=== PATIENT | male | born 1950 | race Caucasian/White ===

== ENCOUNTER → 2020-05-21 08:39 | Outpatient (CLI) | payer MEDICARE, BC, SELFPAY ==
--- NOTE | ~2020-05-21 | XR_ITS ---
XR wrist RT min 3V DATE: 05/21/2020 08:57 INDICATION: Right wrist pain TECHNIQUE: 4 views COMPARISON: None FINDINGS: No fracture or dislocation, periosteal reaction or bone destruction is detected. No chondro calcinosis or erosive change. IMPRESSION: No significant abnormality Reviewed, dictated and finalized at location A. IMPRESSION: No significant abnormality
== END ==
PROVIDERS: PCP Family Medicine; Visit Provider Physician Assistant
DX: M25.539 Pain in unspecified wrist (principal)
CPT/HCPCS: 73110

== ENCOUNTER → 2020-10-22 00:31 | Outpatient (CLI) | payer MEDICARE, BC, SELFPAY ==
[2020-10-22 18:19] LABS: SARS-CoV-2 RNA PCR Negative
== END ==
PROVIDERS: PCP Family Medicine; Visit Provider Specialist
DX: Z01.812 Encounter for preprocedural laboratory examination (principal); Z20.822 Contact with and (suspected) exposure to COVID-19
CPT/HCPCS: C9803; U0003; U0005

== ENCOUNTER 2020-10-25 00:58 | Day surgery (SDC) | payer MEDICARE, BC, SELFPAY ==
[2020-10-22 14:50] VITALS: BMI 30.1
[2020-10-25] VITALS (14 sets, daily range): BP systolic 117–154; BP diastolic 71–88; PULSE 57–75; RESP 12–18; TEMP 36.6–36.7; O2SAT 93–99; BMI 29.9
[2020-10-25 08:52] LABS: Basophils Percent Auto 0.3 % (0.2-1.2); Hematocrit 49.6 % (42.0-52.0); Hemoglobin 17.1 g/dL (14.0-18.0); Immature Granulocyte Absolute 0.04 K/mm3 (0.00-0.031); Immature Granulocyte Percent A 0.6 % (0-0.5); Lymphocytes Absolute Auto 2.06 K/mm3 (0.9-3.2); Lymphocytes Percent Auto 30.4 % (18.3-44.2); Mean Corpuscular HGB Conc 34.5 g/dl (32-36); Mean Corpuscular Hemoglobin 30.5 pg (26-34); Mean Corpuscular Volume 88.4 fl (80-100); Mean Platelet Volume 10.4 fl (7.4-10.4); Monocytes Absolute Auto 0.7 K/mm3 (0.1-0.6); Monocytes Percent Auto 10.3 % (2.6-8.5); Neutrophils Percent Auto 58.4 % (45.5-73.1); Platelet Count Result 219 k/mm3 (150-375); Red Blood Count 5.61 M/mm3 (4.6-6.20); Red Cell Distribution Width 13.7 % (11.5-14.5); White Blood Count 6.8 K/mm3 (4.5-10.0)
[2020-10-25 09:01] LABS: INR 0.9; Prothrombin Time 12.6 Seconds (11.1-14.7)
[2020-10-25 09:04] LABS: Anion Gap 8 mmol/L (8-16); Blood Urea Nitrogen 16 mg/dL (9-20); Calcium 9.8 mg/dL (8.4-10.2); Carbon Dioxide 29 mmol/L (22-30); Chloride 104 mmol/L (98-107); Estimated CRCL calculation 68 ml/min; Estimated Glomerular Filt Rate > 60; Glucose 100 mg/dL (75-110); Potassium 3.3 mmol/L (3.4-5.0); Sodium 141 mmol/L (137-145)
--- NOTE | 2020-10-25 09:51 | WPDMODSED ---
Moderate Sedation Note-Pt Data Patient Data Diagnosis: exertional angina abnormal stress echo Present Complaint: this is a 70-year-old man who has been having exertional symptoms compatible with angina for about a year or more. In the last 2-3 weeks it has accelerated with modest activity prompting his PCP to request a stress echocardiogram. That study was done last week in the office and was significantly abnormal indicating significant stress-induced ischemia. Procedure to be performed/Plan: Left heart catheterization Allergies Allergy/AdvReac Type Severity Reaction Status Date / Time codeine Allergy Unknown throat Verified 10/22/20 14:57 swelling Home Medications Medication Instructions Recorded Confirmed Type albuterol sulfate 90 mcg/actuation 2 puff INHALATION Q4-6H PRN gm 07/28/19 10/22/20 History aerosol inhaler fluticasone propionate 220 1 puff INHALATION Q12H 07/28/19 10/22/20 History mcg/actuation HFA aerosol inhaler benralizumab 30 mg/mL subcutaneous 30 mg SUB-Q ONCE #1 ml 07/31/19 10/22/20 Rx syringe levothyroxine 150 mcg tablet 150 mcg PO DAILY #90 tablet 01/16/20 10/22/20 Rx tamsulosin 0.4 mg capsule 0.4 mg PO DAILY #90 cap 01/16/20 10/22/20 Rx allopurinol 300 mg tablet See Rx Instructions .ROUTE 10/12/20 10/22/20 Rx .COMPLEX #90 tablet hydrochlorothiazide 25 mg tablet See Rx Instructions .ROUTE 10/12/20 10/22/20 Rx .COMPLEX #90 tablet ibuprofen 800 mg PO DAILY PRN 10/22/20 10/22/20 History potassium chloride 10 meq PO DAILY 10/22/20 10/22/20 History Current Medications: Active Medications Sodium Chloride (Normal Saline Iv) 500 mls @ 100 mls/hr IV CONT .Q5H JELENA Sedation/Anesthesia: No previous sedation/anesthesia problems (including family history). [facility] Past Medical History Medical History (Updated 10/19/20 @ 13:56 by Sally Galindo DO) Asthma Chronic sinus complaints Hearing impaired person Hearing loss Obesity (BMI 30.0-34.9) Obesity (BMI 30.0-34.9) TB lung, latent Surgical History Surgical History (Updated 07/05/20 @ 17:20 by Moises Peters MD) H/O parathyroidectomy History of nasal polypectomy Family History Family History Mother Patient's mother is Cerebrovascular accident Father Patient's father is Family history of cardiovascular disease Acute myocardial infarction Social History Social History Smoking status: Former smoker Tobacco type: cigarettes Smoking end date: 09/10/81 Alcohol intake: never Living arrangements: with family Gender identity (if verbalized by the patient): Male Sexual Orientation (if Verbalized by the Patient): Straight or Heterosexual Spiritual care concerns: No Mod Sed Physical Exam Physical Exam Pre Procedural Exam: Normal: Appearance, Nose, Neck, Throat, Airway, Lungs, Heart Size, Heart Rate, Heart Rhythm, Neuro Exam and Extremities Hours since solid foods: 12 Hours since liquid intake: 12 Internal Medicine - PN: Obj Da Vital Signs Vital Signs: Vital Signs - 24 hr 10/25/20 08:46 Temperature 36.7 C Pulse Rate 75 Respiratory Rate 13 Blood Pressure 154/88 H Pulse Oximetry 97 Meds/Results Medications: Active Medications Generic Name Dose Route Start Last Admin Trade Name Freq PRN Reason Stop Dose Admin Sodium Chloride 500 mls @ 100 mls/hr 10/25/20 07:20 Normal Saline Iv IV CONT .Q5H JELENA Labs CBC & Chem 7: 10/25/20 08:43 10/25/20 08:43 Labs: Laboratory Results - last 24 hr 10/25/20 10/25/20 10/25/20 08:43 08:43 08:43 WBC 6.8 RBC 5.61 Hgb 17.1 Hct 49.6 MCV 88.4 MCH 30.5 MCHC 34.5 RDW 13.7 Plt Count 219 MPV 10.4 Immature Gran % (Auto) 0.6 H Neut % (Auto) 58.4 Lymph % (Auto) 30.4 Morris % (Auto) 10.3 H Eos % (Auto) 0.0 Baso % (Auto) 0.3
--- NOTE | 2020-10-25 09:53 | PM.IMHP ---
H&P: HPI History of Present Illness Date/Time: 10/25/20 09:53 Chief Complaint: exertional chest pain Narrative: Eric Velázquez is a 70 year old male without any previous history of coronary artery disease who was referred to see me in the office after a recently abnormal stress echo. The patient has no previous history of cardiac problems and states that actually that he started to have exertional shortness of breath with modest chest discomfort approximately a year ago. The symptoms were very mild any thought they were probably related to asthma since he has a previous history of some asthmatic problems in the past. Recently in the last several weeks he has noticed the symptoms of accelerated the chest pain is also associated with some interscapular back pain and is occurring with modest activity such as just ambulating in the house or walking down the driveway to his mailbox and back. Because of this a stress echocardiogram was requested and was performed office last week. On the stress echo he had relatively obvious inferolateral ST segment depression induced with exercise at a moderate level that persisted into about 12 minutes of recovery. He also had a normal looking left ventricle at rest and following exercise LV was enlarged and diffusely hypodynamic. Angiography was then recommended in this situation Review of Systems Constitutional: Constitutional: Reports no additional constitutional complaints and Reports lethargy Eyes: Eyes: Reports no additional eye complaints ENT: Reports nasal congestion Cardiovascular: Cardiovascular: Reports as per HPI Respiratory: Respiratory: Reports as per HPI Gastrointestinal: Gastrointestinal: Reports no additional gastrointestinal complaints Musculoskeletal: Musculoskeletal: Reports no additional musculoskeletal complaints Integumentary/Breasts: Skin/Breast: Reports system reviewed and no additional complaints, except as docu Neurologic: Reports system reviewed and no additional complaints, except as documented Psychiatric: Psychiatric: Reports no additional psychiatric complaints [facility] Past Medical History Medical History (Updated 10/19/20 @ 13:56 by Sally Galindo DO) Asthma Chronic sinus complaints Hearing impaired person Hearing loss Obesity (BMI 30.0-34.9) Obesity (BMI 30.0-34.9) TB lung, latent Surgical History Surgical History (Updated 07/05/20 @ 17:20 by Moises Peters MD) H/O parathyroidectomy History of nasal polypectomy Family History Family History Mother Patient's mother is Cerebrovascular accident Father Patient's father is Family history of cardiovascular disease Acute myocardial infarction Social History Social History Smoking status: Former smoker Tobacco type: cigarettes Smoking end date: 09/10/81 Alcohol intake: never Living arrangements: with family Gender identity (if verbalized by the patient): Male Sexual Orientation (if Verbalized by the Patient): Straight or Heterosexual Spiritual care concerns: No Meds Home Medications and Allergies Home Medications Medication Instructions Recorded Confirmed Type albuterol sulfate 90 mcg/actuation 2 puff INHALATION Q4-6H PRN gm 07/28/19 10/22/20 History aerosol inhaler fluticasone propionate 220 1 puff INHALATION Q12H 07/28/19 10/22/20 History mcg/actuation HFA aerosol inhaler benralizumab 30 mg/mL subcutaneous 30 mg SUB-Q ONCE #1 ml 07/31/19 10/22/20 Rx syringe levothyroxine 150 mcg tablet 150 mcg PO DAILY #90 tablet 01/16/20 10/22/20 Rx tamsulosin 0.4 mg capsule 0.4 mg PO DAILY #90 cap 01/16/20 10/22/20 Rx allopurinol 300 mg tablet See Rx Instructions .ROUTE 10/12/20 10/22/20 Rx .COMPLEX #90 tablet hydrochlorothiazide 25 mg tablet See Rx Instructions .ROUTE 10/12/20 10/22/20 Rx .COMPLEX #90 tablet ibuprofen 800
--- NOTE | 2020-10-25 10:32 | WPDCARDPROC ---
Cardiac Cath Procedure Note Date of procedure:: 10/25/20 Performing physician:: Moises Jones MD Indication:: Exertional angina abnormal stress echo Brief clinical history:: this is a 70-year-old man not previously known to have coronary disease reporting typical angina for about 1 year accelerating significantly over the last 2-3 weeks. Stress echocardiogram done last week in the office was significantly abnormal prompting recommendation for angiography. Procedure Procedure performed:: Left heart catheterization with left ventriculography and coronary angiography. Sedation/Medication given:: Fentanyl 50 mg Versed 2 mg case start time 10:06 a.m. case end time 10:26 a.m. sedation provided by Gabbie Felix RN, trained observer Access site:: right femoral artery Estimated blood loss:: 10-15 cc Procedure note:: patient was brought to the cardiac catheterization lab in the postabsorptive state where the right femoral triangle was prepared in the usual fashion. Anesthesia was provided with 1% lidocaine infiltrated locally. Using the modified Seldinger technique the right femoral artery was punctured and a 5 Hungarian vascular sheath was placed. I then used a 5 Hungarian angled pigtail catheter to measure left-sided hemodynamics and to inject the left ventricle STRONG projection. After this the right coronary artery was engaged and injected using a 5 Hungarian JR4 catheter. The left coronary was then engaged and injected using a standard 5 Hungarian FL4 catheter. The cineangiograms were reviewed and the case was terminated the patient was taken to the holding area for for manual sheath removal there were no signs of any procedural complications. 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 Findings:: Hemodynamics: The central aortic pressure was 1 30/65 left ventricle 130/0 end-diastolic of 6. There is no systolic gradient on pullback across the aortic valve. Left ventricle: The LV is of normal size all segments contract appropriately the global ejection fraction is visually estimated to be 55%. Left main coronary artery is short there is distal stenosis of the left main that is eccentric in the TOMY cranial caudal and AP caudal projections there appears to be about 80% distal left main stenosis. the left anterior descending is moderate caliber artery it is heavily calcified proximally. The ostial segment coming off the left main has 80-85% stenosis. In the mid LAD there is a high-grade 95% stenosis. Circumflex is a small vessel giving rise to only 1 significant marginal branch. The circumflex itself is free of significant disease but there is left main disease as described above jeopardizing this vessel. Right coronary artery is medium in caliber dominant to the posterior circulation. There is a moderate lesion of 60-70% in the distal RCA just prior to the bifurcation of the RPDA/RPL. Conclusion:: 1. Three-vessel coronary artery disease as described above with significant distal left main stenosis and heavy calcification of the proximal LAD as well. Patient also has high-grade stenosis of the mid LAD and significant stenosis of the distal RCA. 2. Normal left ventricular systolic function 3. based on this anatomy, heavy calcification and left main involvement CABG will be recommended. Moises Jones MD [facility]
--- NOTE | 2020-10-25 16:23 | SUR.PHASEII ---
Pt. given discharge education following cardiac cath. Pt. verbalizes understanding of discharge education. R groin site dressing clean, dry, and intact with no evidence of bleeding or hematoma. Pt. escorted to private vehicle via wheelchair, driven home by son-in-law.
== END 2020-10-25 16:23 | disposition home or self-care (01) ==
PROVIDERS: PCP Family Medicine; Visit Provider Specialist
PROC: 4A023N7 Measurement of Cardiac Sampling and Pressure, Left Heart, Percutaneous Approach (ICD-10-PCS; CPT 93452; principal; 2020-10-25 10:00)
DX: I25.118 Atherosclerotic heart disease of native coronary artery with other forms of angina pectoris (principal); R93.1 Abnormal findings on diagnostic imaging of heart and coronary circulation; R07.9 Chest pain, unspecified; R06.02 Shortness of breath; J45.909 Unspecified asthma, uncomplicated; Z22.7 Latent tuberculosis; Z87.891 Personal history of nicotine dependence; E89.0 Postprocedural hypothyroidism
CPT/HCPCS: 36415; 80048; 85025; 85610; 93458; C1887; C1894; J0461; J1644; J2250; J3010; J7040

== ENCOUNTER 2021-02-16 09:00 | Outpatient (RCR) | payer MEDICARE, BC, SELFPAY ==
[2020-12-07 15:30] VITALS: PULSE 54
--- NOTE | 2021-01-05 10:36 | PCCPR ---
Absent-pt called in stating his hip was bothering him/having pain this morning and that he would be absent.
== END 2021-02-16 19:30 | disposition home or self-care (01) ==
LOC: ANHCPREHAB 09:00
PROVIDERS: PCP Family Medicine; Visit Provider Nurse Practitioner Adult Health
DX: Z95.1 Presence of aortocoronary bypass graft (principal)
CPT/HCPCS: 93798

== ENCOUNTER 2021-03-28 07:55 | Outpatient (CLI) | payer MEDICARE, BC, SELFPAY | END 2021-03-28 07:56 | disposition home or self-care (01) | PROVIDERS: PCP Family Medicine | DX: N40.0 Benign prostatic hyperplasia without lower urinary tract symptoms (principal) | CPT/HCPCS: 87086 ==

== ENCOUNTER 2022-10-19 02:02 | Day surgery (SDC) | payer MEDICARE, BC, SELFPAY ==
[2022-10-10 15:12] VITALS: BMI 28.8
[2022-10-19 09:32] VITALS: BP 134/85; PULSE 78; RESP 21; TEMP 36.4; O2SAT 100
[2022-10-19] MEDS: LACTATED RINGERS 1,000 ML 150 ML IV CONT (09:44)
--- NOTE | 2022-10-19 09:49 | WPDANESEPPF ---
Anes - Initial Pre Proc Eval Procedure: Operation Date: 10/19/22 10:00 Proposed Procedures p Colonoscopy - Naresh Ybarra MD Date/Time: 10/19/22 09:49 Surgeon: Naresh Ybarra MD Pre Op Diagnosis: hx colon polyps Patient Data Age: 72 Gender: M Height: 1.78 m Weight: 91.5 kg Last Vital Signs Temp 36.4 C 10/19/22 09:32 Pulse 78 10/19/22 09:32 Resp 21 H 10/19/22 09:32 BP 134/85 10/19/22 09:32 Pulse Ox 100 10/19/22 09:32 O2 Del Method Room Air 10/19/22 09:32 Allergies Allergy/AdvReac Type Severity Reaction Status Date / Time codeine Allergy Severe throat Verified 10/19/22 09:30 swelling Home Medications Medication Instructions Recorded Confirmed Type aspirin 81 mg tablet,delayed 40.5 mg PO DAILY 11/29/20 10/19/22 History release atorvastatin 40 mg tablet 40 mg PO DAILY 11/29/20 10/19/22 History metoprolol succinate 25 mg 25 mg PO DAILY 11/29/20 10/19/22 History tablet,extended release 24 hr hydrochlorothiazide 25 mg tablet 25 mg PO DAILY 02/02/21 10/19/22 History tamsulosin 0.4 mg capsule 0.4 mg PO DAILY #90 caps 01/09/22 10/19/22 Rx potassium chloride 10 mEq 10 meq PO DAILY #90 caps 06/19/22 10/19/22 Rx capsule,extended release allopurinol 300 mg tablet 300 mg PO DAILY 10/10/22 10/19/22 History levothyroxine 137 mcg tablet 137 mcg PO DAILY 10/10/22 10/19/22 History Patient hx anesthesia problems: none Family hx anesthesia problems: none Results Review: All pre-operative results and documents have been reviewed as part of the pre-operative evaluation. [facility] Past Medical History Medical History Asthma CAD (coronary artery disease) Calcification of coronary artery Ceruminosis Chronic sinus complaints COVID-19 Elevated prostate specific antigen [PSA] Hearing impaired person Hearing loss Kidney stones, calcium oxalate Obesity (BMI 30.0-34.9) Obesity (BMI 30.0-34.9) Reactive airways dysfunction syndrome TB lung, latent Surgical History Surgical History H/O parathyroidectomy History of nasal polypectomy S/P CABG x 3 S/P CABG x 3 Family History Family History Mother Patient's mother is Cerebrovascular accident Father Family history of cardiovascular disease Acute myocardial infarction Patient's father is Grandparent Cerebrovascular accident Social History Social History Smoking packs per day: 3 Smoking cigarettes per day: 60.0 Years smoked: 14 Smoking pack-years: 42.00 Smoking status: Former smoker Tobacco type: cigarettes Smoking end date: 09/10/81 Alcohol intake: never Substance use: never Substance use type: does not use Lack of Transportation: No Lack of Food: Never True Current Housing: I Have Housing Concerned About Future Housing: No Difficulty Paying Gas/Electric Bills: No Difficulty Paying for Meds: No Currently Unemployed: No Education: Associate Degree Difficulty w/ Childcare or Family Care: No Living arrangements: with family Gender identity (if verbalized by the patient): Male Sexual Orientation (if Verbalized by the Patient): Straight or Heterosexual Spiritual care concerns: No Anes - Eval Final PreProcedure Day of Procedure 10/19/22 09:49 Patient weight: overweight Heart: regular rate and rhythm Lungs: decreased breath sounds Airway: Mallampati scale class 1 Neurological: alert and oriented Last oral intake: >/= 8 hours ASA classification: III Emergent: no Anesthetic plan: proceed Anesthesia type and monitoring: general GIVS and standard monitoring Results Review: All pre-operative results and documents have been reviewed as part of the pre-operative evaluation. Informed Consent: The patient's anesthetic plan and
--- NOTE | 2022-10-19 10:04 | PM.HPGS ---
History of Present Illness History of Present Illness Consent: Risks, benefits, and alternatives have been discussed and questions answered. Patient agrees to proceed with procedure. Chief complaint: hx colon polyps Narrative: Eric Velázquez is a 72 year old male Presents for screening colonoscopy. Patient's current weight appetite and bowel movements are normal. Patient denies abdominal pain. Patient has had no bleeding. Patient has a history of a colon polyp removed 2015. Patient presents today for neoplasia screening colonoscopy. Review of Systems Review of Systems: Review of systems noncontributory. [facility] Past Medical History Medical History Asthma CAD (coronary artery disease) Calcification of coronary artery Ceruminosis Chronic sinus complaints COVID-19 Elevated prostate specific antigen [PSA] Hearing impaired person Hearing loss Kidney stones, calcium oxalate Obesity (BMI 30.0-34.9) Obesity (BMI 30.0-34.9) Reactive airways dysfunction syndrome TB lung, latent Surgical History Surgical History H/O parathyroidectomy History of nasal polypectomy S/P CABG x 3 S/P CABG x 3 Family History Family History Mother Patient's mother is Cerebrovascular accident Father Family history of cardiovascular disease Acute myocardial infarction Patient's father is Grandparent Cerebrovascular accident Social History Social History Smoking packs per day: 3 Smoking cigarettes per day: 60.0 Years smoked: 14 Smoking pack-years: 42.00 Smoking status: Former smoker Tobacco type: cigarettes Smoking end date: 09/10/81 Alcohol intake: never Substance use: never Substance use type: does not use Lack of Transportation: No Lack of Food: Never True Current Housing: I Have Housing Concerned About Future Housing: No Difficulty Paying Gas/Electric Bills: No Difficulty Paying for Meds: No Currently Unemployed: No Education: Associate Degree Difficulty w/ Childcare or Family Care: No Living arrangements: with family Gender identity (if verbalized by the patient): Male Sexual Orientation (if Verbalized by the Patient): Straight or Heterosexual Spiritual care concerns: No Meds Home Medications and Allergies Home Medications Medication Instructions Recorded Confirmed Type aspirin 81 mg tablet,delayed 40.5 mg PO DAILY 11/29/20 10/19/22 History release atorvastatin 40 mg tablet 40 mg PO DAILY 11/29/20 10/19/22 History metoprolol succinate 25 mg 25 mg PO DAILY 11/29/20 10/19/22 History tablet,extended release 24 hr hydrochlorothiazide 25 mg tablet 25 mg PO DAILY 02/02/21 10/19/22 History tamsulosin 0.4 mg capsule 0.4 mg PO DAILY #90 caps 01/09/22 10/19/22 Rx potassium chloride 10 mEq 10 meq PO DAILY #90 caps 06/19/22 10/19/22 Rx capsule,extended release allopurinol 300 mg tablet 300 mg PO DAILY 10/10/22 10/19/22 History levothyroxine 137 mcg tablet 137 mcg PO DAILY 10/10/22 10/19/22 History Allergies Allergy/AdvReac Type Severity Reaction Status Date / Time codeine Allergy Severe throat Verified 10/19/22 09:30 swelling Vital Signs Vital Signs - 24 hr 10/19/22 09:32 Temperature 97.6 F Pulse Rate 78 Respiratory Rate 21 H Blood Pressure 134/85 Pulse Oximetry 100 Oxygen Delivery Room Air Exam Narrative: Physical exam reveals patient to be alert. Vital signs stable. HEENT exam is unremarkable. Patient is anicteric. Lungs are clear to auscultation and percussion. Heart is without murmur or extra sounds. Abdomen bowel sounds are present soft nontender with no organomegaly. Digital external rectal exam is normal. Assessment and Plan Assessment and plan (1) History of colon polyps:
[2022-10-19 10:31] VITALS: BP 95/56; PULSE 56; RESP 20; O2SAT 95
[2022-10-19 10:41] VITALS: BP 103/63; PULSE 58; RESP 20; O2SAT 96
[2022-10-19 10:51] VITALS: BP 105/69; PULSE 60; RESP 20; O2SAT 96
== END 2022-10-19 10:58 | disposition home or self-care (01) ==
PROVIDERS: PCP Family Medicine; Visit Provider Internal Medicine Gastroenterology
PROC: 0DJD8ZZ Inspection of Lower Intestinal Tract, Via Natural or Artificial Opening Endoscopic (ICD-10-PCS; CPT 45378; principal; 2022-10-19 10:00)
DX: Z12.11 Encounter for screening for malignant neoplasm of colon (principal); K63.5 Polyp of colon; K64.8 Other hemorrhoids; K57.30 Diverticulosis of large intestine without perforation or abscess without bleeding; I25.10 Atherosclerotic heart disease of native coronary artery without angina pectoris; Z79.82 Long term (current) use of aspirin; Z22.7 Latent tuberculosis; Z95.1 Presence of aortocoronary bypass graft; Z87.891 Personal history of nicotine dependence
CPT/HCPCS: 45385; 88305; J2704; J7120

== ENCOUNTER 2022-12-20 15:20 | Emergency (ER) | payer MEDICARE, BC, SELFPAY ==
--- NOTE | ~2022-12-20 | XR_ITS ---
XR wrist RT min 3V 12/20/2022 15:46 Indication: Wrist pain Procedure: 4 views right wrist Comparison: 05/21/2020 Findings: Polyarticular osteoarthritis. Subchondral cyst present in the distal aspect of the ulna. Th ere is a small degenerative loose body in the ulnar carpal joint space. No fracture, subluxation or d islocation. No foreign bodies. There is soft tissue swelling adjacent to the distal aspect of the rad ius. No foreign body. Impression: 1: No acute bone or joint abnormality. 2: Moderate soft tissue swelling adjacent to the distal aspect of the radius. Reviewed, dictated and finalized at location B. Impression: 1: No acute bone or joint abnormality. 2: Moderate soft tissue swelling adjacent to the distal aspect of the radius.
--- NOTE | 2022-12-20 15:26 | ED.UPPEXIN ---
HPI - Extremity Injury (Upper) General Chief Complaint: Extremity Injury, Upper Stated Complaint: INJURED R WRIST Time Seen by Provider: 12/20/22 15:35 Source: patient and RN notes reviewed History of Present Illness HPI narrative: Patient is a 72-year-old male who presents to urgent care with complaints of right wrist pain. Patient states he is right-hand dominant. States that he was mowing and a knot back fired hitting his right wrist. Patient states that it happened just prior to arrival and he has not taken anything [id number] for his pain. No other acute complaints. No acute distress noted. Patient aware of the plan of care. Some parts of this dictation were generated by voice recognition software and may contain typographical and/or grammatical inaccuracies. Related Data Home Medications Medication Instructions Recorded Confirmed aspirin 81 mg tablet,delayed 40.5 mg PO DAILY 11/29/20 10/19/22 release atorvastatin 40 mg tablet 40 mg PO DAILY 11/29/20 10/19/22 metoprolol succinate 25 mg 25 mg PO DAILY 11/29/20 10/19/22 tablet,extended release 24 hr hydrochlorothiazide 25 mg tablet 25 mg PO DAILY 02/02/21 10/19/22 allopurinol 300 mg tablet 300 mg PO DAILY 10/10/22 10/19/22 levothyroxine 137 mcg tablet 137 mcg PO DAILY 10/10/22 10/19/22 Allergies Allergy/AdvReac Type Severity Reaction Status Date / Time codeine Allergy Severe throat Verified 12/20/22 15:36 swelling Review of Systems Review of Systems: CONSTITUTIONAL: Denies fever, chills, or sweats. EYES: Denies visual changes, redness, or discharge. ENT: Denies rhinorrhea, congestion, sore throat, or otalgia. CARDIOVASCULAR: Denies chest pain, palpitations, or edema. RESPIRATORY: Denies cough or dyspnea. GASTROINTESTINAL: Denies abdominal pain, nausea, vomiting, or diarrhea. GENITOURINARY: Denies dysuria or hematuria. SKIN: Denies rash or itching. MUSCULOSKELETAL: Reports right wrist pain NEUROLOGIC: Denies headache, numbness, or weakness. All other systems reviewed are negative, except as documented in HPI. [facility] Past Medical History Medical History Asthma CAD (coronary artery disease) Calcification of coronary artery Ceruminosis Chronic sinus complaints COVID-19 Elevated prostate specific antigen [PSA] Hearing impaired person Hearing loss Kidney stones, calcium oxalate Obesity (BMI 30.0-34.9) Obesity (BMI 30.0-34.9) Reactive airways dysfunction syndrome TB lung, latent Surgical History Surgical History H/O parathyroidectomy History of nasal polypectomy S/P CABG x 3 S/P CABG x 3 Family History Family History Mother Patient's mother is Cerebrovascular accident Father Family history of cardiovascular disease Acute myocardial infarction Patient's father is Grandparent Cerebrovascular accident Social History Social History Smoking packs per day: 3 Smoking cigarettes per day: 60.0 Years smoked: 14 Smoking pack-years: 42.00 Smoking status: Former smoker Tobacco type: cigarettes Smoking end date: 09/10/81 Alcohol intake: never Substance use: never Substance use type: does not use Lack of Transportation: No Lack of Food: Never True Current Housing: I Have Housing Concerned About Future Housing: No Difficulty Paying Gas/Electric Bills: No Difficulty Paying for Meds: No Currently Unemployed: No Education: Associate Degree Difficulty w/ Childcare or Family Care: No Living arrangements: with family Gender identity (if verbalized by the patient): Male Sexual Orientation (if Verbalized by the Patient): Straight or Heterosexual Spiritual care concerns: No Comments At the time of my signature, I reviewed and agree with the nursing past
[2022-12-20 15:39] VITALS: BP 118/84; PULSE 79; RESP 16; TEMP 36.8; O2SAT 98
== END 2022-12-20 16:04 | disposition home or self-care (01) ==
PROVIDERS: Emergency Provider Nurse Practitioner Family; PCP Family Medicine
DX: S60.211A Contusion of right wrist, initial encounter (principal); W20.8XXA Other cause of strike by thrown, projected or falling object, initial encounter; Y93.H9 Activity, other involving exterior property and land maintenance, building and construction; J45.909 Unspecified asthma, uncomplicated; I25.10 Atherosclerotic heart disease of native coronary artery without angina pectoris; E66.9 Obesity, unspecified; Z68.36 Body mass index [BMI] 36.0-36.9, adult; Z87.891 Personal history of nicotine dependence
CPT/HCPCS: 73110; 99213; G0463